=== PATIENT | female | born 1990 | race Caucasian/White ===

== ENCOUNTER 2018-06-29 21:42 | Emergency (ER) | payer OTHER ==
[2018-06-29] MEDS ORDERED: NS 1,000 ML IV ONE (22:24)
--- NOTE | 2018-06-29 22:34 | EDPHY ---
H & P Stated Complaint: Vaginal Bleeding Source: Patient - Personal History LMP (Females 10-55): Current Tetanus/Diphtheria Vaccine: Unsure Current Tetanus Diphtheria and Acellular Pertussis (TDAP): Unsure - Medical/Surgical History Hx Asthma: No Hx Chronic Respiratory Disease: No Hx Diabetes: No Hx Cardiac Disease: No Hx Renal Disease: No Hx Cirrhosis: No Hx Alcoholism: No Hx HIV/AIDS: No Hx Splenectomy or Spleen Trauma: No Other PMH: Denies - Family History Significant Family History: No pertinent family hx - Social History Smoking Status: Never smoked Alcohol Use: Rarely Drug Use: Marijuana Time Seen by Provider: 06/29/18 22:24 HPI/ROS: This patient reports intermittent vaginal bleeding since the beginning of May with positive home test the beginning of May 14 week followed by a visit to her OBGYN at [facility] on May 27 with a negative urine test. She was told that she likely completed miscarriage. However she then had recurrent vaginal bleeding and a positive urine test 3 days prior to arrival. She reports mild spotting 3 days prior to arrival that resolved prior to bleeding vaginally since last night with 4 pads today. She denies any other symptoms except breast tenderness their minds aura prior . Her brought her in by private vehicle for further evaluation. ROS: Constitutional: She feels warm but no high fevers or chills. HEENT: Mild coryza for 2 days. No other URI symptoms or complaints pulmonary: No cough Cardiovascular: No chest pain or heart palpitations GI: No abdominal pain or pelvic pain. No nausea vomiting. : As per HPI vaginal bleeding today. She again denies pelvic pain. No urinary symptoms. Integumentary: No skin rash pallor diaphoresis. 10 point review of symptoms is performed and otherwise negative with exception of pertinent positives and negatives listed in HPI and ROS (Keenan Rizzo) - Physical Exam Exam: General Appearance: Alert, no distress. Eyes: Pupils equal and round no pallor or injection. ENT, Mouth: Mucous membranes moist. Respiratory: There are no retractions, lungs are clear to auscultation. Cardiovascular: Regular rate and rhythm. Gastrointestinal: Abdomen is soft and nontender, no masses, bowel sounds normal. No pelvic tenderness Neurological: GCS 15 Skin: Warm and dry, no rashes. Musculoskeletal: Neck is supple nontender. Extremities are symmetrical, full range of motion. Psychiatric: Mood and affect normal DIFFERENTIAL DIAGNOSIS: After history and physical exam differential diagnosis was considered for threatened miscarriage, incomplete miscarriage, ectopic (Keenan Rizzo) Constitutional: Initial Vital Signs Temperature (C) 36.5 C 06/29/18 22:03 Heart Rate 92 06/29/18 22:03 Respiratory Rate 16 06/29/18 22:03 Blood Pressure 102/63 06/29/18 22:03 O2 Sat (%) 95 06/29/18 22:03 O2 Delivery Mode Room Air Allergies/Adverse Reactions: gluten Allergy (Verified 06/29/18 22:08) Home Medications: Medication Instructions Recorded Celexa 06/29/18 Medical Decision Making - Diagnostics Imaging Results: Imaging Impressions Pelvic/Renal Ultrasound 06/29/18 22:45 Impression: 1. Normal-appearing uterus. 2. Small amount of fluid within the endometrial canal without evidence of gestational sac. 3. Possible involuted follicular cyst versus corpus luteum cyst on the left with adjacent small follicular cyst. 4. No evidence of intrauterine . Consider correlation with beta hCG. Findings discussed with the ER physician at 0:04 hour, 06/30/2018. ED Course/Re-evaluation: IV established I spoke with oncoming physician Dr. Ray at 11:00 p.m. Regarding this patient. He will follow up on lab results and ultrasound results. (Keenan Rizzo) Case discussed with radiologist regarding the ultrasound of the pelvis findings which including endovaginal exam. There was some small follicular cyst. Perhaps a small involuting corpus luteal cyst on the left. No signs or secondary signs of ectopic . No pelvic masses. No intrauterine seen. The above signs reviewed and summarized with the patient. At this point were dealing with threatened miscarriage due to cervical os being closed. This is most likely a 2nd whereas it appears that there was a early, complete AB in early May. Thereby, most likely she has 1-2 weeks , though this does not explain her emotional lability and breast tenderness. We have discussed at length the risk of and warning findings of ectopic and rupture and she has to act accordingly. Furthermore we have also discussed the need for further follow-up to clearly delineate the clinical course. (Anival Ray) Differential Diagnosis: DIAGNOSTIC CONSIDERATIONS INCLUDE, BUT ARE NOT LIMITED TO, THE FOLLOWING: ECTOPIC , INTRAUTERINE , BLEEDING FROM A CERVICAL OR VAGINAL LESION, MENOMETRORRHAGIA, , DYSFUNCTIONAL UTERINE BLEEDING (Anival Ray) Other Provider: Care assumed at change of shift. Quantitative test pending as well as result of ultrasound. D/w off going physician. Chart reviewed. Pt interviewed and examined. History as noted above. Patient was concerned as she continued to"feel "with breast swelling and emotional lability. In fact she she notes some 2 days ago being prostrate on the floor, sobbing. In particular, this is how she had felt when she was the 1st time with her child. Her most recent test done at home by way of urine was particularly striking as it turned positive for right away. The testing that she did at early May was rather a faint line comparatively speaking. Well as been vaginal bleeding for the last 3 days or certainly has been no vaginal pain whatsoever. She has not felt faint or weak. The been no flank pain or to dysuria or frequency. There has been no fevers or chills. As to her anemia detected on her laboratory exam today, she has been having exertional fatigue for several weeks and of note vaginal bleeding for 6 weeks on and off. I do not have any old labs to compare, though did check the [place] web site for her. General Appearance: Alert, no distress. Afebrile. Normal phonation. No respiratory distress. Conjunctivae pale. Eyes: Pupils equal, no pallor or injection. No icterus ENT, Mouth: Mucous membranes moist Pharynx without erythema or exudate. TM Clear. Neck: No adenopathy. Supple. No JVD. Trachea in midline. Respiratory: There are no retractions, lungs are clear to auscultation. Cardiovascular: Regular rate and rhythm, no murmur. Abdomen: Soft and slight left mid abdominal tenderness, no masses, bowel sounds normal. External Genitalia: normal, shaved, no lesions Vaginal Canal: no lesions, mild amount of active vaginal bleeding from the cervical canal Cervix: nonfriable no tissue Internal: No adnexal masses nor tenderness. Fundus is small, with mild tenderness Neurological: Ox3. No motor weakness. Gait nl. Skin: Warm and dry, no rashes. Psychiatric: Normal affect. (Anival Ray) - Data Points Laboratory Results: 06/29/18 22:30 Beta HCG, Quant 130.40 mIU/mL H mIU/mL (0.00-4.83) Urine is positive (Keenan Rizzo) Medications Given: Discontinued Medications Sodium Chloride (Ns) 1,000 mls @ 0 mls/hr IV EDNOW ONE; Wide Open PRN Reason: Protocol Stop: 06/29/18 22:25 Last Admin: 06/29/18 22:58 Dose: 1,000 mls Point of Care Test Results: CBC CBC Collection Date 06/29/18 CBC Collection Time 22:35 WBC 5 RBC 3.89 HGB 12.2 HCT 36.7 PLT 169 Neut # 3 Neut 58.9 LYMPH # 1.7 LYMPH 34.4 Other WBC # 0.3 Other WBC 6.7 MCV 94.3 Urine Collection Date 06/29/18 Collection Time 22:50 HCG Results Positive Urine Dip Collection Date 06/29/18 Collection Time 22:50 Specific [place] (1.002-1.030) 1.020 PH (5.0-7.5) 7.0 Leukocytes (Negative) Negative Nitrites (Negative) Negative Protein (Negative) Negative Glucose (Negative) Negative Ketones (Negative) Negative Urobilnogen (0.2-1.0 EU) 0.2 Bilirubin (Negative) Negative Blood (Negative) Negative Departure - Departure Disposition: Home, Routine, Self-Care Clinical Impression: Vaginal bleeding, Threatened Condition: Good Instructions: First Trimester Vaginal Bleed (ED) Additional Instructions: You need to return immediately if you started developing: Passing out - in which case she should call 911 Abdominal pain Bleeding more than 1 hr Tomorrow: Get started on a iron vitamin Call your OBGYN for follow-up later this week for '1st trimester bleeding with anemia' In the interim: No intercourse Referrals: Patient,NotPresent [Primary Care Provider] - 2-3 days without fail Marcia Mata MD [Medical Doctor] - As per Instructions
[2018-06-30 00:40] VITALS: BP 104/74
== END 2018-06-30 00:52 | disposition home or self-care (01) ==
LOC: CED 21:42 → MERGE 21:42 → CED 06-30 00:52
DX: O20.0 Threatened abortion (principal); O99.011 Anemia complicating pregnancy, first trimester; D50.0 Iron deficiency anemia secondary to blood loss (chronic); O99.281 Endocrine, nutritional and metabolic diseases complicating pregnancy, first trimester; E86.9 Volume depletion, unspecified; Z3A.09 9 weeks gestation of pregnancy
CPT/HCPCS: 76856-PO

== ENCOUNTER 2018-10-06 13:24 | Emergency (ER) | payer OTHER ==
--- NOTE | 2018-10-06 13:45 | EDPHY ---
H & P Smoking Status: Never smoked Time Seen by Provider: 10/06/18 13:33 HPI/ROS: CHIEF COMPLAINT: Worsening anxiety and depression HISTORY OF PRESENT ILLNESS: Patient was last hospitalized 10 years ago at 17 years old for anxiety and depression. She has a history of self-injury by cutting herself in the past. She presents today because she sat down at work and just started crying and a friend called her had him bring her to the ER. She says she just feels more depressed and "does not want to be here anymore" but denies suicidal ideation or any kind of plan. When asked if she would harm herself she says that I"just do not have the energy." Denies any medical complaints today. REVIEW OF SYSTEMS: Eye: no change in vision ENT: no sore throat Cardiac: no chest pain or syncope Pulmonary: no cough or SOB Abdomen: no vomiting, diarrhea, abdominal pain Musculoskeletal: no back pain Skin: No laceration or cut Neuro: no headache Constitutional: no fever : no urinary symptoms A comprehensive 10 point review of systems is otherwise negative aside from elements mentioned in the history of present illness. PAST MEDICAL HISTORY: Anxiety and depression, Merna-Danlos Social history: Here with her , , no drugs or alcohol General Appearance: Alert and conversant, cooperative. Eyes: No scleral icterus. ENT, Mouth: Normal mucous membranes. Respiratory: Normal respiratory effort, breath sounds equal, lungs are clear to auscultation. Cardiovascular: Regular rate and rhythm. Gastrointestinal: Abdomen is soft and non tender. Neurological: Alert, face symmetric, normal motor and sensory in extremities. Skin: No cuts bruising or lacerations. Musculoskeletal: No peripheral edema. Psychiatric: Very tearful, very anxious, depressed affect. Denies suicidal or homicidal ideation or hallucinations. Emergency Department course/MDM: Presents voluntarily, indicated to have mental health evaluation. The patient had a medical screening evaluation performed. There does not appear to be an acute emergent medical or surgical condition which would preclude psychiatric evaluation at this time. Mental health evaluation is requested. 1500: signed out to Dr. Rose with mental health evaluation pending. (Carlos Melgar) Constitutional: Initial Vital Signs Temperature (C) 36.6 C 10/06/18 13:43 Heart Rate 88 10/06/18 13:43 Respiratory Rate 24 H 10/06/18 13:43 Blood Pressure 128/75 H 10/06/18 13:43 O2 Sat (%) 98 10/06/18 13:43 O2 Delivery Mode Room Air Allergies/Adverse Reactions: gluten Allergy (Verified 06/29/18 22:08) Milk Containing Products [dairy] Allergy (Verified 10/06/18 16:53) meat Allergy (Uncoded 10/06/18 16:53) Home Medications: Medication Instructions Recorded Celexa 10/06/18 Medical Decision Making ED Course/Re-evaluation: I took over care of this patient at 3:00 p.m.. This patient presents to the emergency department with complaint of worsening anxiety and depression. She is not on a behavioral health hold at this time. She is awaiting behavioral health evaluation. 5:40 p.m., the patient has been accepted for admission to [facility]. Accepting psychiatrist is Dr. Haider. I have filled out the appropriate transfer paperwork. The patient's remaining emergency department course under my care has been uneventful. The patient was transferred in stable condition. ( Tino Rose) Differential Diagnosis: Differential diagnosis considered for depression including functional and major depression, situational depression, medication side effect, drugs and alcohol abuse. (Carlos Melgar) - Data Points Laboratory Results: Laboratory Results 10/06/18 14:20 10/06/18 14:20 10/06/18 10/06/18 10/06/18 14:20 14:20 14:20 WBC 5.87 10^3/uL 10^3/uL (3.80-9.50) RBC 4.27 10^6/uL 10^6/uL (4.18-5.33) Hgb 13.5 g/dL g/dL (12.6-16.3) Hct 39.8 % % (38.0-47.0) MCV 93.2 fL fL (81.5-99.8) MCH 31.6 pg pg (27.9-34.1) MCHC 33.9 g/dL g/dL (32.4-36.7) RDW 12.3 % % (11.5-15.2) Plt Count 170 10^3/uL 10^3/uL (150-400) MPV 11.2 fL fL (8.7-11.7) Neut % (Auto) 67.9 % % (39.3-74.2) Lymph % (Auto) 24.2 % % (15.0-45.0) [place] % (Auto) 6.3 % % (4.5-13.0) Eos % (Auto) 0.9 % % (0.6-7.6) Baso % (Auto) 0.5 % % (0.3-1.7) Nucleat RBC Rel Count 0.0 % % (0.0-0.2) Absolute Neuts (auto) 3.99 10^3/uL 10^3/uL (1.70-6.50) Absolute Lymphs (auto) 1.42 10^3/uL 10^3/uL (1.00-3.00) Absolute Monos (auto) 0.37 10^3/uL 10^3/uL (0.30-0.80) Absolute Eos (auto) 0.05 10^3/uL 10^3/uL (0.03-0.40) Absolute Basos (auto) 0.03 10^3/uL 10^3/uL (0.02-0.10) Absolute Nucleated RBC 0.00 10^3/uL 10^3/uL (0-0.01) Immature Gran % 0.2 % % (0.0-1.1) Immature Gran # 0.01 10^3/uL 10^3/uL (0.00-0.10) Sodium 136 mEq/L mEq/L (135-145) Potassium 4.1 mEq/L mEq/L (3.5-5.2) Chloride 106 mEq/L mEq/L (97-110) Carbon Dioxide 23 mEq/l mEq/l (22-31) Anion Gap 7 mEq/L mEq/L (6-14) BUN 8 mg/dL mg/dL (7-23) Creatinine 0.6 mg/dL mg/dL (0.6-1.0) Estimated GFR > 60 Glucose 94 mg/dL mg/dL (70-100) Calcium 9.2 mg/dL mg/dL (8.5-10.4) Beta HCG, Qual NEGATIVE Salicylates < 1.0 mg/dL L mg/dL (2.0-20.0) Urine Opiates Screen Acetaminophen < 10 mcg/mL L mcg/mL (10-30) Urine Barbiturates Ur Phencyclidine Scrn Ur Amphetamine Screen U Benzodiazepines Scrn Urine Cocaine Screen U Marijuana (THC) Screen Ethyl Alcohol < 10 mg/dL mg/dL (0-10) 10/06/18 14:00 WBC RBC Hgb Hct MCV MCH MCHC RDW Plt Count MPV Neut % (Auto) Lymph % (Auto) [place] % (Auto) Eos % (Auto) Baso % (Auto) Nucleat RBC Rel Count Absolute Neuts (auto) Absolute Lymphs (auto) Absolute Monos (auto) Absolute Eos (auto) Absolute Basos (auto) Absolute Nucleated RBC Immature Gran % Immature Gran # Sodium Potassium Chloride Carbon Dioxide Anion Gap BUN Creatinine Estimated GFR Glucose Calcium Beta HCG, Qual Salicylates Urine Opiates Screen NEGATIVE (NEGATIVE) Acetaminophen Urine Barbiturates NEGATIVE (NEGATIVE) Ur Phencyclidine Scrn NEGATIVE (NEGATIVE) Ur Amphetamine Screen NEGATIVE (NEGATIVE) U Benzodiazepines Scrn NEGATIVE (NEGATIVE) Urine Cocaine Screen NEGATIVE (NEGATIVE) U Marijuana (THC) Screen NON-NEGATIVE H (NEGATIVE) Ethyl Alcohol Departure - Departure Disposition: Other Psych, Not [facility] Clinical Impression: Severe major depression, Anxiety
[2018-10-06 14:29] LABS: PLATELET COUNT 170 10^3/uL (150-400)
--- NOTE | 2018-10-06 17:06 | ASMTTLCEVL ---
[facility] Evaluation - Basic Information Evaluation Start Date and 10/06/2018 02:45 PM Time Hospital Status Answers: Voluntary Patient statement Notes: "I am tired - I am exhausted - my life is a shit show." Narrative Notes: This 27 y/o (but for 2 weeks) mother of a 2 y/o daughter who presented to the ED voluntarily - saying she just can't take it any more. She is having passive suicidal ideation - constant anxiety and tearfulness. She describes a chaotic life - her marriage is unhappy and her asked her to leave 2 weeks ago - (daughter has been staying with and his parents) though she has been visiting. 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 Pt denies any history of auditory/visual hallucinations or homicidal ideation. Pt has engaged in parasuicide (cutting behaviors since age 12) and as recently as this summer. Diagnosis History Notes: Pt has been diagnosed with depression and anxiety - at age 17, while living with her aunt in [place] she made a serious suicide attempt requiring medical hoospitalization an then psychiatric hospitalization. She had been diagnosed as bipolar - age 17 - but this was ruled out after being diagnosed with Celiac Disease. She has never beendiagnosed with Borderline Personality Disorder but she appears to meet criteria. Prior suicide attempts Notes: Pt made one serious suicide attempt at age 17 Prior hospitalizations Notes: 1 in-pt hospitalization at age 17 Treatment Responses Notes: Pt is currently in weekly psychotherapy sessions since the summer and has benefited from psychotherapy in the past as well. History of violence Notes: None Therapist: Amanda Morrow Medications (name, dosage, route, freq uency) Notes: celexa 40 mg QD prescribed by her Automotive Engineering Technician Allergies/Reaction Notes: Pt reports gluten allergy and is lactose intolerant Sleep Notes: Difficulty falling and staying asleep Appetite Notes: decreased Medical/Surgical history Notes: Celiac Disease; Merna-Danios Syndrome (connective tissue disorder) 1 Normal Vaginal Delivery Substance use history (frequency, intensity, his tory, duration) Notes: Pt reports daily use of edibles which help contain her anxiety. Family composition Notes: and 2 y/o daughter; Mother and other faily members live in [place] [facility] Evaluation - Mental Status Exam Appearance: Answers: Appropriate Clean Eye Contact: Answers: Good/Direct Mood: Answers: Depressed Affect: Answers: Appropriate Anxious Congruent w/ Mood Sad Behavior: Answers: Appropriate Cooperative Anxious Speech: Answers: Relevant Logical Clear Coherent Soft Thought Process: Answers: Organized Oriented Alert Goal Oriented Insight: Answers: Good Judgement: Answers: Fair Depression Answers: Crying Spells Signs/Symptoms: Difficulty Concentrating Hopelessness Sad Mood Anxiety Signs/Symptoms Answers: Generalized Anxiety Hallucinations: Answers: None Pt reported to have Answers: Yes suicidal/self-injuring ideation/behavior? Pt reported to be making Answers: No suicidal/self-injuring threats? Pt reported to have Answers: No aggression/assault ideation/behavior? Pt reported to be making Answers: No aggression/assault threats? Pt exhibits inability to Answers: No care for self/grave disability? Ideation/behavior is Answers: Yes chronic? Patient has a specific Answers: No plan? History of Answers: Yes suicidal/self-injuring ideation, behavior, or threats? History of Answers: No aggressive/assaultive ideation, behavior, or threats? History of serious Answers: No physical harm to self/others while in treatment setting? [facility] Evaluation - Suicide/Homicide Risk Suicide Risk Factors: Answers: Anxiety/Panic, Severe Borderline Personality DO Major Depression Prior Suicide Attempt(s) Problems with Partner Self-Harm Behaviors Unstable Living Situation Homicide/violence risk Answers: None factors: Current Suicidal Answers: Yes Ideation? Current Suicide Ideation daily Frequency: Current Suicidal Ideation Answers: Yes in the Past 48 Hours? Current Suicidal Ideation Answers: Yes in the Past Month? Suicide Internal Answers: Absence of Psychosis Protective Factors: Frustration Tolerance Nicole with Stress Suicide External Answers: Responsibility to Protective Factors: Children Social Support Ranking of patient's Answers: Low suicidal risk: TLC Evaluation - Wrap-up BDI Total Score: 38 BDI Question #2 Score: 1 BDI Question #9 Score: 2 BSS Total Score: 22 AXIS I Diagnosis (include DSM-V and ICD-10 codes), must also be entered in [employer], which is the source of truth. Notes: 296.32 (F33.1) Major depressive Disorder, moderate, recurrent 300.02 (F41.1) Generalized Anxiety Disorder Evaluation End Date and 10/06/2018 05:00 PM Time (HH:MM): Date Signed: 10/06/2018 05:05 PM Electronically Signed By:Danielle Otero
--- NOTE | 2018-10-06 17:38 | ASMTTCLDSP ---
[facility] Discharge Disposition Disposition: Answers: Transfer Disposition Notes: Notes: Pt to be admitted to [facility] as a voluntary Admit Was patient given the Answers: Not applicable Inpatient Behavioral Health Prohibited Belongings List while in the ED? For Transfers, Accepting [facility] Facility: For Transfers, Accepting Karen Haider MD Psychiatrist: For Transfers, Reason 3N capped at 12 Patient is Being Transferred: Date Signed: 10/06/2018 05:38 PM Electronically Signed By:Danielle Otero
[2018-10-06 20:33] VITALS: BP 110/65
== END 2018-10-06 19:49 ==
DX: F32.2 Major depressive disorder, single episode, severe without psychotic features (principal); F41.8 Other specified anxiety disorders
CPT/HCPCS: 80305; G0480